=== PATIENT | male | born 1960 | race Caucasian/White ===

== ENCOUNTER 2017-06-09 11:32 | Day surgery (SDC) | payer OTHER ==
[2017-06-09] MEDS ORDERED: PROPOFOL 10 MG/ML VIAL IV ONE (11:33)
[2017-06-09] MEDS ORDERED: LIDOCAINE 2% MDV (20MG/ML) 20ML VIAL IV ONE (11:33)
[2017-06-09] MEDS ORDERED: MIDAZOLAM HCL 2MG/2ML VIAL IV ONE (11:33)
--- NOTE | 2017-06-10 12:30 | Operative Note ---
DATE OF SURGERY: 06/09/2017 OPERATION: COLONOSCOPY with cold forceps and cold snare polypectomy. PREOPERATIVE DIAGNOSIS: Screening, average risk. POSTOPERATIVE DIAGNOSIS: Cecal polyps x2. PREPARATION QUALITY: Excellent. ESTIMATED BLOOD LOSS: Minimum. SPECIMENS: Cecal polyps x2. COMPLICATIONS: None apparent. PROCEDURE: After informed consent was obtained from the patient he was placed in the left lateral decubitus position in the endoscopy suite, sedated and monitored by the department of anesthesia. Digital rectal exam was unremarkable. A well-lubricated [id number] colonoscope was inserted into the rectum and advanced to the cecum. Preparation quality was excellent. There were 2 polyps in the cecum, one approximately 3 mm in diameter and the other approximately 5-6 mm in diameter. The larger polyp was removed with a cold snare. The smaller with a cold forceps. Minimal bleeding was noted at the site. The remainder of the cecum, ascending colon, transverse colon, descending colon, sigmoid colon, and rectum were otherwise unremarkable. J-turn views of the anorectum were unremarkable. The endoscope was straightened, the rectal ampulla deflated, and the endoscope was removed. RECOMMENDATIONS: The patient should resume his medications and diet. I would recommend a repeat exam in 5-10 years pending tissue histology. As always, thank you for allowing me to participate in the healthcare of your patients. CC: Dr. Faith HEREDIA
== END 2017-06-09 13:44 | disposition home or self-care (01) ==
LOC: HOP 11:32
PROVIDERS: ATTEND Internal Medicine Gastroenterology
DX: Z12.11 Encounter for screening for malignant neoplasm of colon (principal); D12.0 Benign neoplasm of cecum